=== PATIENT | female | born 1980 | race Caucasian/White ===

== ENCOUNTER → 2019-11-18 | Outpatient (CLI) | payer OTHER ==
--- NOTE | 2019-11-18 18:41 | Diagnostic Imaging Report ---
PROCEDURE: MR imaging cervical spine without contrast. TECHNIQUE: Multiplanar, multisequence MR imaging of the cervical spine was performed without contrast. INDICATION: Neck pain with no known discrete injury. COMPARISON: None. FINDINGS: Neck is held in flexion. No listhesis. The cervical spinal cord, itself, has normal volume, morphology and signal intensity. There is lower cervical spondylosis with disc desiccation bulge and endplate osteophytes greatest at C6-C7 where there are mild canals and mild biforaminal stenosis. At this level, there are small foraminal perineural cysts, bilaterally, measuring 4-5 mm. Similar findings of multiple upper thoracic levels are noted. At C5-C6 mild osteophyte disc material, posteriorly, did not did not result in an appreciable degree of canal or foraminal stenosis. Remaining discs are nondisplaced. IMPRESSION: Neck is held in flexion with some relatively mild lower cervical spondylosis and foraminal stenosis. Normal cord. No acute bony pathology. No substantial canal narrowing. Dictated by: Dictated on workstation # [id number]
== END ==
LOC: RAD 14:39
PROVIDERS: ATTEND Family Medicine
DX: M47.812 Spondylosis without myelopathy or radiculopathy, cervical region (principal); M48.02 Spinal stenosis, cervical region
CPT/HCPCS: 72141